=== PATIENT | male | born 1930 | race Caucasian/White ===

== ENCOUNTER → 2016-09-23 | Outpatient (CLI) | payer OTHER ==
[~2016-09-23] VITALS: Ht 177.8 cm; Wt 75.4 kg
[~2016-09-23] MED LIST: ASPIRIN EC325 M1 PO; ATENOLOL 50MG T50 M1 PO; CELEBREX 200 M200 M1 PO; FENTANYL PA12 MCG/HR TP; FISH OIL 1,0001 EAC5 PO; GLUCOSAMINE S1000 M2 PO; HALCION0.125 MG PO; HYDROCODONE-AP1 EAC6 PO; IBUPROFEN 200200 M1 PO; MULTIVITAMINS1 EAC7 PO; NABUMETONE 500500 M1 PO; SAW PALMETTO500 MG PO; SIMVASTATIN20 MG PO; VITAMIN D1000 UNI1 PO; VITCB500GO PO; ZANTAC 7575 MG PO; ZPAK PO
--- NOTE | ~2016-09-23 | HPC ---
[facility] [place] [address] PAIN MANAGEMENT CONSULTATION Name: BREN BARRIENTOS JR Room #: REG [facility]#: [id number] Admission: 09/23/16 Attend Phys: Jairo Goldsmith DO Discharge: Date of : 29 Report #: [id number] THIS REPORT FOR: //name// CC: Jairo Thomas DO DATE OF SERVICE: 09/23/2016 DATE OF SERVICE: 09/23/2016 CHIEF COMPLAINT: Low back pain, right lower extremity pain and paresthesias, intermittent left buttock and posterolateral thigh pain. HISTORY OF PRESENT ILLNESS: As you know, the patient is an extremely pleasant 86-year-old male, who returns today in followup visit, reporting pain score 6-7/10. He indicates pain is exacerbated with walking, standing, improves with sitting, lying down, heat and cold compresses, . He reports an 80% improvement in overall pain with previous epidural injection. He has returned today requesting next in the series to build on success of previous intervention. He has denied any changes in medical history and he denies any injury or trauma that may have led to progression of pain. ALLERGIES: ALUMINUM. CURRENT MEDICATIONS: Cholecalciferol, Halcion, glucosamine chondroitin, ascorbic acid, aspirin, simvastatin, atenolol, multivitamins. SOCIAL HISTORY: The patient denies tobacco, alcohol, IV or illicit drug use. He is retired, retired years ago, accompanied by his who is present in room today. IMAGING: No new imaging available. PHYSICAL EXAMINATION: VITAL SIGNS: Blood pressure 120/74, pulse 60, respiratory rate 20, unlabored. The patient is 100% on room air, height 5 feet 10 inches tall, weight 166.2 pounds, BMI calculated 23.8. GENERAL: Well developed, well nourished, well hydrated, 86-year-old male. He appears his stated age, pain is rated around 6-7/10. HEENT: Normocephalic, atraumatic. Pupils equal, round, reactive to light. Extraocular muscles are intact. Sclerae nonicteric without injection. NEUROLOGIC: Cranial nerves 2-12 grossly intact. Speech fluent. EXTREMITIES: Show no clubbing, no cyanosis, no edema. MUSCULOSKELETAL: Lower extremity strength appears equal and symmetrical 5/5. There is some gait changes antalgic favoring right lower extremity over left. [address] [address] PAIN MANAGEMENT CONSULTATION Name: BREN BARRIENTOS JR Room #: REG [facility]#: [id number] Admission: 09/23/16 Attend Phys: Jairo Goldsmith DO Discharge: Date of : 29 Report #: [id number] Muscle bulk and tone appears equal and symmetrical. There is deconditioning noted bilaterally. Seated straight leg raising negative. Supine straight leg raising positive. ASSESSMENT: 1. Symptomatic lumbar radiculopathy. 2. Lumbosacral spondylosis with radiculopathy. 3. Degeneration of lumbar spine. 4. Chronic intractable pain. PLAN: 1. The patient has returned today in followup visit requesting to undergo the next in a series of epidural injections under fluoroscopic guidance. He reports 80% improvement in overall pain with previous injection, but unfortunately his pain has begun to return. He has requested and we will perform next in the series of epidural injections. He has done very well with these injections. We are hopeful to see similar improvement today. He has consent to undergo the procedure. 2. No medication changes were made at today's visit. The patient to continue current medical therapy as previously prescribed. 3. The patient to return to our clinic on an as needed basis for the next in a series of epidural injections and discuss other treatment options. PROCEDURE NOTE DESCRIPTION OF PROCEDURE: Lumbar epidural steroid injection under fluoroscopic guidance. After obtaining written consent, the patient was taken back to fluoroscopy suite, placed in prone position with pillow under abdomen to decrease lumbar lordosis. Skin overlying lumbosacral area prepped and draped in aseptic fashion. Lumbar intervertebral spaces were identified by AP fluoroscopy. Skin and subcutaneous tissue overlying target site of injection was anesthetized with 3 mL of 1% lidocaine. A #20-gauge 3-1/2 inch Tuohy needle advanced under fluoroscopic guidance towards the epidural space using a right paramedian approach. Epidural space identified using loss of resistance to air technique. After negative aspiration for heme or cerebrospinal fluid, 1 mL of Omnipaque was injected. Lumbar epidurogram confirmed using both AP and lateral fluoroscopy. After negative aspiration for heme or cerebrospinal fluid, 5 mL of a solution containing 2 mL 40 mg per mL, 80 mg total triamcinolone, 3 mL lidocaine 1% injected slowly. Needle retracted penitentiary, needle tract flushed 3 mL 1% lidocaine. Needle removed. Sterile bandage placed over injection site. No new motor deficits present in lower extremity following the procedure. [facility] [address] [place] [address] PAIN MANAGEMENT CONSULTATION Name: BREN BARRIENTOS JR Room #: REG [facility]#: [id number] Admission: 09/23/16 Attend Phys: Jairo Goldsmith DO Discharge: Date of : 29 Report #: [id number] The patient tolerated procedure well, carefully escorted to the recovery in stable condition. No apparent complications. After meeting discharge criteria, the patient discharged home. By: [id number] Jairo Goldsmith DO /nt
[2016-09-23 08:54] VITALS: BP 128/74
== END ==
LOC: PAIN 07:01
DX: M47.27 Other spondylosis with radiculopathy, lumbosacral region (principal); G89.29 Other chronic pain; I10 Essential (primary) hypertension; Z87.891 Personal history of nicotine dependence

== ENCOUNTER → 2016-11-11 | Outpatient (CLI) | payer OTHER ==
[~2016-11-11] VITALS: Ht 177.8 cm; Wt 74.5 kg
[~2016-11-11] MED LIST changes: +I-PRIN200 MG PO; +IBUPROFEN 800800 M1 PO; +PRILOSEC 20 MG20 MG PO
--- NOTE | ~2016-11-11 | HPC ---
[facility] [address] [place] [address] PAIN MANAGEMENT CONSULTATION Name: BREN BARRIENTOS JR Room #: REG [facility]#: [id number] Admission: 11/11/16 Attend Phys: Jairo Goldsmith DO Discharge: Date of : 29 Report #: [id number] THIS REPORT FOR: //name// CC: Jairo Thomas DO DATE OF SERVICE: 11/11/2016 REFERRING PHYSICIAN: Casey Thomas DO. CHIEF COMPLAINT: Low back pain, right lower extremity pain and paresthesias. HISTORY OF PRESENT ILLNESS: As you know, the patient is an extremely pleasant 86-year-old male, who continues to experience low back pain, right lower extremity pain, but now he is experiencing some left lower extremity symptoms. He is placing current pain score at 6-7/10, states the pain is exacerbated with walking, standing, getting out of bed, and sitting for any length of time, improves with lying down, heat and cold compresses, distraction techniques, also ibuprofen therapy 800 mg twice a day. He returns today in followup visit to discuss treatment options. ALLERGIES: ALUMINUM. CURRENT MEDICATIONS: Cholecalciferol, Halcion, glucosamine chondroitin, ascorbic acid, aspirin, multivitamin, atenolol, simvastatin, ibuprofen 800 mg twice a day. SOCIAL HISTORY: The patient denies tobacco, alcohol, IV or illicit drug use. He is retired, retired years ago. He is accompanied by his , who is present in room today. IMAGING: No new imaging available. PHYSICAL EXAMINATION: VITAL SIGNS: Blood pressure 151/80, pulse is 60, respiratory rate 20, unlabored. The patient is 98% on room air, height 5 feet 10 inches tall, weight 164.2 pounds, BMI calculated at 23.6. GENERAL: Well developed, well nourished, and well hydrated. An 86-year-old male appearing stated age. Pain is rated around 6-7/10. HEENT: Normocephalic and atraumatic. Pupils are equal, round, and reactive to light. Extraocular muscles are intact. Speech is fluent. EXTREMITIES: Show no clubbing, no cyanosis, no edema. MUSCULOSKELETAL: Seated straight leg raising negative. Supine straight leg raising remains positive. Danielle's test negative. Modified Gaenslen's is positive for axial low back pain. Ankle clonus negative. Babinski is negative. [address] [address] PAIN MANAGEMENT CONSULTATION Name: BREN BARRIENTOS JR [id number] Admission: 11/11/16 Attend Phys: Jairo Goldsmith DO Discharge: Date of : 29 Report #: [id number] The patient's gait is antalgic and shuffling in presentation. ASSESSMENT: 1. Symptomatic lumbar radiculopathy. 2. Lumbosacral spondylosis with radicular symptoms. 3. Lumbar degeneration. 4. Chronic intractable pain. PLAN: 1. The patient has returned today in followup visit, where we have discussed at length treatment options for his ongoing back pain issues. The patient reports today that if he takes 800 mg of ibuprofen twice a day, he is virtually pain free. He states that if he takes this in the morning and again somewhere around 3 o'clock in the afternoon, he is able to go about all activities of daily living throughout the day. We did discuss the risks and the benefits of the ibuprofen therapy at 800 mg. We would have to watch for long-term therapy issues, including kidney dysfunction, GI issues and the possibility of cardiovascular risk. So given the benefits he is receiving, this risk to benefit ratio would favor the ibuprofen. The patient and I discussed this at length today. He can bring this up with his primary care physician, but I would venture to guess that given the ibuprofen therapy, the fact that he is receiving near 100% improvement in overall pain, able to do all activities of daily living including continuing his workouts and tasks around the home, that the medication itself would far away in its potential side effects, given the benefit that he receives. I would recommend that he continue the ibuprofen at this time. It is certainly safer than epidural injections and current medications available for chronic pain issues. 2. We have provided the patient with a prescription of ibuprofen 800 mg dose 1 tab p.o. b.i.d. with meals. I have given the patient #60 tablets, 2 refills, 3 months' worth of medication. 3. The patient and I will have him undergo laboratory testing at next visit to check BUN and creatinine, we would be monitoring this during this medical therapy. We will keep you apprised if any changes are noted or changes in medication therapy need to be addressed. 4. The patient could return at any time if he wishes to undergo next in the series of epidural injections. We would certainly be willing to have the patient return to undergo this procedure, but given the fact that he is seeing such significant improvement with ibuprofen, I would recommend he continue this therapy, until this fails or having side effects to the medication. <ELECTRONICALLY SIGNED> By: Jairo Goldsmith DO 11/12/16 0753 [id number] Jairo Goldsmith, DO /nt
[2016-11-11 10:51] VITALS: BP 151/80
== END | disposition home or self-care (01) ==
LOC: PAIN 06:27
DX: M51.36 Other intervertebral disc degeneration, lumbar region (principal); J40 Bronchitis, not specified as acute or chronic; M47.27 Other spondylosis with radiculopathy, lumbosacral region; G89.29 Other chronic pain; Z87.891 Personal history of nicotine dependence

== ENCOUNTER → 2017-12-14 | Outpatient (CLI) | payer OTHER ==
[~2017-12-14] VITALS: Ht 180.3 cm; Wt 73.9 kg
[~2017-12-14] MED LIST changes: +METOPROLOL SUCC50 MG PO; +NORVASC2.5 MG PO; +PLAVIX 75 MG TA75 M1 PO; +PROTONIX40 M1 PO; +XALATAN2.5 ML OPHTHALMIC
--- NOTE | ~2017-12-14 | HPC ---
[facility] [place] [address] PAIN MANAGEMENT CONSULTATION Name: BREN BARRIENTOS JR Room #: REG [facility]#: [id number] Admission: 12/14/17 Attend Phys: Jairo Goldsmith DO Discharge: Date of : 29 Report #: [id number] THIS REPORT FOR: //name// CC: Jaior Thomas DO DATE OF SERVICE: 12/14/2017 CHIEF COMPLAINT: Low back pain, right lower extremity pain with paresthesias. HISTORY OF PRESENT ILLNESS: As you know, the patient is an extremely pleasant 87-year-old male who returns today in followup visit with recurrent low back pain, right lower extremity pain with paresthesias. The patient places his current pain score 7/10. He states his pain is constant, deep, aching, numbness and tingling. He states pain is exacerbated with sitting, getting up and down from a chair, walking long distances. It improves with activities and epidural injections. He returns today in followup visit indicating he has had 3 transient ischemic attacks, the most recent nearly 1 month ago and he has been started on anticoagulant therapy. He states that the transient ischemic attacks left no residual deficits except for some cognition issues. The patient returns to discuss options for treatment for low back pain, right lower extremity pain due to radiculopathy. He indicates ibuprofen therapy 800 mg twice a day is working beneficially for pain control. He continues to take this medication. ALLERGIES: ALUMINUM. CURRENT MEDICATIONS: Cholecalciferol, Halcion, glucosamine chondroitin, ascorbic acid, aspirin, multivitamins, atenolol, simvastatin, ibuprofen and Plavix. SOCIAL HISTORY: The patient denies tobacco, alcohol, IV or illicit drug use. He is retired, retired years ago. He is accompanied by his who is present in room today. IMAGING: No new imaging available. PQRS: The patient has osteoarthritis of the back, bilateral hands and knees. No rheumatoid arthritis. He places pain intensity is 7/10. He is not a fall risk and has not had a fall in last 3 months. He is on blood thinners. He is not under opioid contract. He has a low assessment for opioid addiction. He places his functional assessment pain impact score 35/70 moderate. PHYSICAL EXAMINATION: VITAL SIGNS: Blood pressure 139/74, pulse 59, respiratory rate 16 and unlabored, the patient is 99% on room air. Height 5 feet 11 inches tall, weight [facility] [address] [place] [address] PAIN MANAGEMENT CONSULTATION Name: BREN BARRIENTOS [facility]: [facility] [id number] Admission: 12/14/17 Attend Phys: Jairo Goldsmith DO Discharge: Date of : 29 Report #: [id number] 163 pounds, BMI calculated 22.7. GENERAL: Well-developed, well-nourished, well-hydrated 87-year-old male appearing stated age, placing current pain score 7/10. HEENT: Normocephalic, atraumatic. Pupils equal, round, reactive to light. Extraocular muscles are intact. EXTREMITIES: Show no clubbing, no cyanosis, no edema. MUSCULOSKELETAL: Lower extremity strength is symmetrical with giveaway strength noted with hip flexion, knee extension on the right when compared to the left. Seated straight leg raising positive right, supine straight leg raising positive right. Danielle's test negative. Modified Gaenslen's is positive for some axial low back pain. Ankle clonus negative. Babinski is negative. Muscle bulk and tone appears equal and symmetrical. Gait is antalgic and shuffling. ASSESSMENT: 1. Symptomatic lumbar radiculopathy. 2. Lumbosacral spondylosis with radiculopathy. 3. Lumbar degeneration. 4. Chronic intractable pain. PLAN: 1. The patient returns today in followup visit with recurrent low back pain, right lower extremity pain with paresthesias. He reports good efficacy with previous lumbar epidural injections providing upwards of 80% improvement in overall pain lasting almost 1 year. The patient unfortunately has had a recurrence of symptoms in typical distribution. The patient and I discussed the potential for treatment options. These would include physical therapy, stretching exercise and core strengthening. We discussed medication management with a neuropathic pain medication and a low dose opioid for pain control. We discussed epidural injections under fluoroscopic guidance, spinal cord stimulator and surgical options. The patient at this point wished just specifically review his options for treatment and determine the source of his symptoms. 2. The patient and I did discuss that the symptoms he is experiencing are radicular in origin. The treatments as indicated above would be beneficial. He has noted great benefit with previous epidural injections, but unfortunately, he is now on anticoagulation for transient ischemic attacks. He would need to obtain clearance to come off his Plavix for 7 days per ABDULLAHI guidelines to undergo the epidural injection. If the patient is able to gain clearance off the medication for the 7 days, we would have him return to undergo epidural injection. Certainly medication managements could be an option in this patient's case and we discussed this at length today. 3. The patient indicates he is getting good benefit from his ibuprofen therapy. I have advised the patient at this time, the ibuprofen therapy cannot be utilized in conjunction with Pradaxa due to increasing bleeding risk. The patient states that he cannot live without the ibuprofen therapy. We discussed options of treatment. He will determine whether or not he wishes to continue [facility] [address] [place] [address] PAIN MANAGEMENT CONSULTATION Name: BREN BARRIENTOS Room #: REG [facility]#: [id number] Admission: 12/14/17 Attend Phys: Jairo Goldsmith DO Discharge: Date of : 29 Report #: [id number] this therapy, though we have suggested he discontinue immediately. Would not recommend any nonsteroidal anti-inflammatories in his case as none have been approved with Plavix concomitant therapy. 4. The patient will return to our clinic on an as needed basis for possible epidural injection. He will need to obtain authorization to discontinue his Plavix for 7 days prior to the injection. He was advised of such today. If he is able to achieve authorization, we will have the patient return at his earliest convenience to undergo the procedure. 5. We will discuss at followup visit other treatment options including surgical options if requested. We are hopeful the patient has a better understanding of his ongoing issues and treatment options available and the risks and benefits of those treatments. By: [id number] Jairo Goldsmith DO /nt
[2017-12-14 11:18] VITALS: BP 139/74
== END ==
LOC: PAIN 06:39
DX: M47.27 Other spondylosis with radiculopathy, lumbosacral region (principal); M51.16 Intervertebral disc disorders with radiculopathy, lumbar region; G89.4 Chronic pain syndrome

== ENCOUNTER → 2018-01-12 | Outpatient (CLI) | payer OTHER ==
[~2018-01-12] VITALS: Ht 180.3 cm; Wt 73.5 kg
--- NOTE | ~2018-01-12 | HPC ---
[facility] [place] [address] PAIN MANAGEMENT CONSULTATION Name: BARRIENTOSBREN KAYLYNN JR Room #: REG [facility]#: [id number] Admission: 01/12/18 Attend Phys: Jairo Goldsmith DO Discharge: Date of : 29 Report #: [id number] THIS REPORT FOR: //name// CC: Jairo Robb DATE OF SERVICE: 01/12/2018 REFERRING PHYSICIAN: Casey Thomas DO CHIEF COMPLAINT: Low back pain, right lower extremity pain and paresthesias. HISTORY OF PRESENT ILLNESS: As you know, the patient is an extremely pleasant 87-year-old male who returns today in followup visit with continued low back pain, right lower extremity pain with paresthesias. The patient has been off his Plavix for the past 7 days in preparation to undergo epidural injection under fluoroscopic guidance. The patient indicates pain is aching and burning, places current pain score 5/10, exacerbated with sitting and getting in and out of bed, improves with walking, ibuprofen therapy and activity. He has been referred to our clinic for lumbar epidural injections. He has done very well with previous injections, returning today requesting next in the series. He has discontinued his Plavix 7 days prior to today's procedure. ALLERGIES: ALUMINUM and IV CONTRAST AGENT. CURRENT MEDICATIONS: Cholecalciferol, Halcion, glucosamine chondroitin, ascorbic acid, aspirin, multivitamin, atenolol, simvastatin, ibuprofen, and Plavix. SOCIAL HISTORY: The patient denies tobacco, alcohol, IV or illicit drug use. He is retired, retired years ago. He is accompanied by his who is present in room today. IMAGING: No new imaging available. PQRS: The patient has osteoarthritis of the lower back, bilateral hands, and knees. No rheumatoid arthritis. He places current pain score at 5/10. He is not a fall risk, has not had a fall in the last 3 months. He is on blood thinners, but has discontinued in preparation for today's procedure. He is not under any opioid contract, he has low opiate addiction potential. He is placing his pain impact score at 35/70, moderate interference. PHYSICAL EXAMINATION: VITAL SIGNS: Blood pressure 126/66, pulse 66, respiratory rate 14 and unlabored, the patient is 98% on room air, height 5 feet 11 inches tall, weight [facility] [address] [place] [address] PAIN MANAGEMENT CONSULTATION Name: BREN BARRIENTOS JR Room #: REG [facility]#: [id number] Admission: 01/12/18 Attend Phys: Jairo Goldsmith DO Discharge: Date of : 29 Report #: [id number] 262 pounds, and BMI calculated 22.6. GENERAL: Well-developed, well-nourished, well-hydrated 87-year-old male, appearing stated age, placing current pain score around 5/10. HEENT: Normocephalic, atraumatic. Pupils are equal, round, and reactive to light. Speech is fluent for patient. EXTREMITIES: Show no clubbing, no cyanosis, and no edema. MUSCULOSKELETAL: Lower extremity strength is symmetrical with some giveaway strength noted with hip flexion, knee extension on the right when compared to left. Seated straight leg raising mildly positive right. Supine straight leg raising positive right. Gait is antalgic favoring right lower extremity over left and secondary to underlying condition. ASSESSMENT: 1. Symptomatic lumbar radiculopathy. 2. Lumbosacral spondylosis with radiculopathy. 3. Lumbar degeneration. 4. Chronic intractable pain. PLAN: 1. The patient has returned today in followup visit to undergo next in the series of epidural injections. He reports good efficacy of 80% with previous epidural injection. He has stopped his Plavix in preparation for today's procedure, he has been off the medication for 7 days. We have advised the patient the risks and benefits, states understood and wished to proceed. 2. The patient has requested refill of his ibuprofen therapy. He has gained clearance from his primary care physician, Dr. Thomas to continue with intermittent ibuprofen therapy in conjunction with his Plavix. We have provided the patient with an ibuprofen 800 mg dose b.i.d. maximum per day. He was given #60 tablets with refills. The patient will watch for any increased bleeding risk with the use of this medication, he will also watch for dyspepsia, worsening blood pressure, and lower extremity edema. If any side effects, discontinue immediately. 3. We will see the patient back in followup visit on an as needed basis for possible next in the series of epidural injections. PROCEDURE NOTE DESCRIPTION OF PROCEDURE: L5-S1 right paramedian epidural steroid injection under fluoroscopic guidance. After obtaining written consent, the patient was taken back to fluoroscopy suite, placed in prone position with pillow under abdomen to decrease lumbar lordosis. Skin overlying lumbosacral area then prepped and draped in aseptic fashion. L5-S1 vertebral interspace identified by AP fluoroscopy. Skin and subcutaneous tissue overlying target site of injection was anesthetized with 3 mL of 1% lidocaine. [address] [address] PAIN MANAGEMENT CONSULTATION Name: BREN BARRIENTOS JR Room #: REG [facility]#: [id number] Admission: 01/12/18 Attend Phys: Jaior Goldsmith DO Discharge: Date of : 29 Report #: [id number] A 20-gauge 3-1/2-inch Tuohy needle advanced under fluoroscopic guidance towards the epidural space using a right paramedian approach. Epidural space identified using loss of resistance to air technique. Due to a contrast allergy, no contrast agent was used in today's procedure. Imaging was obtained to confirm needle position within the epidural space both in AP and lateral imaging. After negative aspiration for heme or cerebrospinal fluid, 4 mL of a solution containing 2 mL 40 mg per mL, 80 mg total triamcinolone and 2 mL of preservative-free normal saline injected. Needle was retracted mcc, flushed with 1 mL of 1% lidocaine and removed. Sterile bandage placed over injection site. No new motor deficits present in lower extremity following procedure. The patient tolerated the procedure well, carefully escorted to the recovery room in stable condition. No apparent complications. After meeting discharge criteria, the patient discharged home. <ELECTRONICALLY SIGNED> By: Jairo Goldsmith DO 01/14/18 0815 [id number] Jairo Goldsmith DO /nt
[2018-01-12 07:46] VITALS: BP 126/66
== END | disposition home or self-care (01) ==
LOC: PAIN 06:31
DX: M54.16 Radiculopathy, lumbar region (principal)

== ENCOUNTER → 2018-03-22 | Outpatient (CLI) | payer OTHER ==
[~2018-03-22] VITALS: Ht 180.3 cm; Wt 72.6 kg
--- NOTE | ~2018-03-22 | HPC ---
[facility] [address] [place] [address] PAIN MANAGEMENT CONSULTATION Name: BREN BARRIENTOS JR Room #: REG [facility]#: [id number] Admission: 03/22/18 Attend Phys: Jairo Goldsmith DO Discharge: Date of : 28 Report #: [id number] THIS REPORT FOR: //name// CC: Jairo Thomas ADDENDUM. Apparently one of my dictation got cut off after the chief complaint. ALLERGIES: ALUMINUM. CURRENT MEDICATIONS: Cholecalciferol, Halcion, glucosamine chondroitin, ascorbic acid, aspirin, multivitamin, atenolol, simvastatin, ibuprofen, Plavix. SOCIAL HISTORY: The patient denies tobacco, alcohol, IV or illicit drug use. He is retired, retired years ago. He is unaccompanied today. IMAGING: No new imaging available. 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 No rheumatoid arthritis. He is placing his current pain intensity of 1-2/10. He is not a fall risk, has not had a fall in the last 3 months. He is on blood thinners in the form of Plavix . He is treated for hypertension. He is not on current opioids. He has a low opioid addiction potential. Functional assessment, pain impact score 35/70, moderate interference. PHYSICAL EXAMINATION: VITAL SIGNS: Blood pressure 135/63, pulse 69, respiratory rate 16 and unlabored, the patient 99% on room air. Height 5 feet 11 inches tall, weight 160 pounds, BMI calculated 22.3. GENERAL: Well-developed, well-nourished, well-hydrated 87-year-old male, who returns today in followup visit with pain score 1-2/10. The patient is deemed a good historian. LUNGS: Clear, no wheeze, rhonchi or rales. CARDIOVASCULAR: Regular. No appreciable gallop or rub. ABDOMEN: Soft, nontender, nondistended. EXTREMITIES: Show no clubbing, no cyanosis, no edema. MUSCULOSKELETAL: Lower extremity strength appears symmetrical 5/5. He is intact to light touch from L1 through S2 dermatomes. There is mild giveaway strength noted with hip flexion, knee extension on the right compared to left. Seated straight leg raising is negative. Supine straight leg raising positive on the left. Danielle test negative. ASSESSMENT: 1. [place] [address] PAIN MANAGEMENT CONSULTATION Name: BREN BARRIENTOS JR Room #: REG CLI [facility]#: [id number] Admission: 03/22/18 Attend Phys: Jairo Goldsmith DO Discharge: Date of : 29 Report #: [id number] 2. Lumbosacral spondylosis with radiculopathy. 3. Lumbar degeneration. 4. Chronic intractable pain. PLAN: 1. The patient returns today in followup visit having made an appointment about 2 weeks ago when his pain intensified to a level of 8/10. The patient states that over the past couple of days, his pain has begun to improve spontaneously. He has made no changes in medical history. He has changed none of his activities. He just indicates his pain spontaneously began to resolve just as it spontaneously begun. There is not unusual for spinal stenosis patients and is fairly typical presentation. The patient and I discussed at length today the use of the next in the series of epidural injections. At this point, I would recommend delaying its use as we currently have a tolerable pain levels, and he has improved spontaneously. I would recommend that we delay the epidural injection until which time his pain returns and does not improve spontaneously. The patient was amenable. 2. The patient was advised if his pain does return, to discontinue his anticoagulant immediately Plavix require 7 days off before he can undergo the procedure. This is based on the ABDULLAHI guidelines. The patient would make an appointment back with us after discontinuing the Plavix to undergo the next in the series of epidural injections. During that time that he has discontinued his Plavix, he can take his ibuprofen that was provided for pain control. He can take up to three 800 mg ibuprofen over that week timeframe to help with pain that is present prior to our injection. 3. We will see the patient back in followup visit on an as needed basis. We hope that his pain remains tolerable, but will be available to see him back for the next in the series of epidural injections. <ELECTRONICALLY SIGNED> By: Jairo Goldsmith DO 03/23/18 1542 [id number] Jairo Goldsmith DO /nt
--- NOTE | ~2018-03-22 | HPC ---
[address] [address] PAIN MANAGEMENT CONSULTATION Name: BARRIENTOSBREN ZULUAGALEY Room #: REG [facility]#: [id number] Admission: 03/22/18 Attend Phys: Jairo Goldsmith DO Discharge: Date of : 29 Report #: [id number] THIS REPORT FOR: //name// CC: Jairo Robb DATE OF SERVICE: 03/22/2018 CHIEF COMPLAINT: Low back pain, right lower extremity pain and paresthesias. HISTORY OF PRESENT ILLNESS: As you know, the patient is an extremely pleasant 87-year-old male who returns today in followup visit stating 2 weeks ago, his back pain intensified with radiation all the way down the right leg. At that time, he was reporting pain at a level of 8-9/10. Over the past couple of days, his pain has begun to improve. He is now placing pain score 1-2/10. He returns today in followup visit to discuss treatment options. He remains on his Plavix, which precludes us from providing any type of epidural injection or interventional treatment. Dictation ends here. <ELECTRONICALLY SIGNED> By: Jairo Goldsmith DO 03/23/18 1542 [id number] Jairo Goldsmith DO /nt
[2018-03-22 12:30] VITALS: BP 135/63
== END ==
LOC: RAD 06:56 → PAIN 06:56
DX: M47.26 Other spondylosis with radiculopathy, lumbar region (principal); M47.27 Other spondylosis with radiculopathy, lumbosacral region; M51.16 Intervertebral disc disorders with radiculopathy, lumbar region; G89.4 Chronic pain syndrome; M41.86 Other forms of scoliosis, lumbar region; Z79.899 Other long term (current) drug therapy

== ENCOUNTER → 2018-07-26 | Outpatient (CLI) | payer OTHER ==
[~2018-07-26] VITALS: Ht 180.3 cm; Wt 79.7 kg
[~2018-07-26] MED LIST changes: +HYDROCODON-ACE1 EAC7 PO
--- NOTE | ~2018-07-26 | HPC ---
[facility] [address] [place] [address] PAIN MANAGEMENT CONSULTATION Name: BARRIENTOSBREN KAYLYNN JR Room #: REG [facility]#: [id number] Admission: 07/26/18 Attend Phys: Jairo Goldsmith DO Discharge: Date of : 29 Report #: [id number] THIS REPORT FOR: //name// CC: Jairo Thomas DO DATE OF SERVICE: 07/26/2018 REFERRING PHYSICIAN: Casey Thomas D.O. CHIEF COMPLAINT: Low back pain, right lower extremity pain and paresthesias. HISTORY OF PRESENT ILLNESS: As you know, the patient is extremely pleasant 88-year-old male who returns today in followup visit with recurrent low back pain, right lower extremity pain and paresthesias. The patient is placing his current pain score at around 5/10. He states he is having difficulty with walking and standing due to increased pain. He has discontinued his Plavix in preparation for today's procedure. He has been off the Plavix for over 7 days. He denies new injury or trauma that may have led to symptom occurrence. He returns today to undergo next in the series of lumbar epidural injections to address lumbar radicular symptoms. ALLERGIES: ALUMINUM. CURRENT MEDICATIONS: Cholecalciferol, Halcion, glucosamine chondroitin, ascorbic acid, aspirin, multivitamin, atenolol, simvastatin, ibuprofen and Plavix. SOCIAL HISTORY: The patient denies tobacco, alcohol or IV or illicit drug use. He is retired, retired years ago, accompanied by his present in room today. IMAGING DATA: No new imaging available. PQRS: The patient has osteoarthritic changes of the lumbar spine, bilateral hands and bilateral knees. No rheumatoid arthritis. He is placing current pain score at 6/10. He is a fall risk and he has had a fall in the last couple of weeks. He does not use any cane or ambulatory device, though we have cautioned him to do so. He is on blood thinners in the form of Plavix. He is treated for hypertension. He is not on any chronic opioids. He has a low opioid addiction potential. Based on our assessment tool, pain impact is 35/70, moderate interference of daily activities secondary to pain. PHYSICAL EXAMINATION: VITAL SIGNS: Blood pressure 117/71, pulse 80 and respiratory rate 16 and unlabored. The patient is 100% on room air and current temperature is 98.0 [place] [address] PAIN MANAGEMENT CONSULTATION Name: BREN BARRIENTOS JR [id number] Admission: 07/26/18 Attend Phys: Jairo Goldsmith DO Discharge: Date of : 29 Report #: [id number] Fahrenheit. Height 5 feet 11 inches tall, weight 175.6 pounds and BMI calculated 24.5. GENERAL: Well-developed, well-nourished and well hydrated 88-year-old male appearing stated age, placing current pain score 5/10. HEENT: Normocephalic and atraumatic. Pupils equal, round and reactive to light. Extraocular muscles are intact. EXTREMITIES: Show no clubbing, no cyanosis and no edema. MUSCULOSKELETAL: Lower extremity strength is symmetrical 5/5, intact to light touch from L1 through S2 dermatomes. Seated straight leg raising is positive on the right. Supine straight leg raising positive on the right. Danielle's test is negative. Modified Gaenslen's positive for axial low back pain. Ankle clonus negative. Babinski is negative. There is swelling noted over the right lower extremity distal to the knee. This is nonpitting. ASSESSMENT: 1. Symptomatic lumbar radiculopathy. 2. Lumbosacral spondylosis with radiculopathy. 3. Lumbar degeneration. 4. Chronic intractable pain. PLAN: 1. The patient has returned today in followup visit with recurrence of pain. He is now placing pain score 6/10, states pain begins in the low back, radiates down the right leg all the way to the foot. This is causing intense stabbing sensations, numbness and tingling that making difficult for the patient to go about activities of daily living. He returns today in followup visit having discontinued his Plavix for the past 7 days in preparation for an epidural injection. He has been advised risks and benefits of the procedure, states understood and wished to proceed. 2. No medication changes made at today's visit. He will restart his Plavix starting this afternoon and continue normal Plavix dosing as directed by the prescribing physician. 3. We will see the patient back in followup visit on an as needed basis for possible next in the series of lumbar epidural injections. PROCEDURE NOTE DESCRIPTION OF PROCEDURE: L5-S1 right paramedian epidural steroid injection under fluoroscopic guidance. After obtaining written consent, the patient was taken back to fluoroscopy suite, placed in prone position with pillow under abdomen to decrease lumbar lordosis. Skin overlying the lumbosacral area then prepped and draped in aseptic fashion. The L5-S1 vertebral interspace identified by AP fluoroscopy. Skin and subcutaneous tissue overlying target site of injection anesthetized with 3 mL of 1% lidocaine. [address] [address] PAIN MANAGEMENT CONSULTATION Name: BREN BARRIENTOS JR Room #: REG [facility]#: [id number] Admission: 07/26/18 Attend Phys: Jairo Goldsmith DO Discharge: Date of : 29 Report #: [id number] A 20-gauge 3-1/2 inch Tuohy needle advanced under fluoroscopic guidance towards the epidural space using a right paramedian approach. Epidural space identified using loss of resistance to air technique. After negative aspiration for heme or cerebrospinal fluid, 1 mL of Omnipaque injected. Lumbar epidurogram confirmed using both AP and lateral fluoroscopy. After negative aspiration for heme or cerebrospinal fluid, 5 mL of a solution containing 2 mL 40 mg per mL, 80 mg total triamcinolone, 3 mL of lidocaine 1% injected slowly. Needle were then retracted approximately half way, flushed with 1 mL of 1% lidocaine and removed. Sterile bandage placed over injection site. No new motor deficits present in the lower extremities following procedure. The patient tolerated procedure well, carefully escorted to recovery room in stable condition. No apparent complications. After meeting discharge criteria, the patient discharged home. By: [id number] [id number] Jairo Goldsmith DO /nt
[2018-07-26 08:22] VITALS: BP 117/71
--- NOTE | 2018-07-26 08:37 | NUR ---
Pain Clinic Assessment: 1. History of Osteoarthritis: Not Applicable History of Rheumatoid Arthritis: Not Applicable 2. Height: 5 ft. 11 in. 180.3 cm. Weight: 175.6 lb. oz. 79.652 kg. Patient's BMI: 24.5 3. Vital Signs: BP: 117/71 Pulse: 80 Resp: 16 Temp: 02 Sat: 100 ECG Mon: 4. Pain Intensity: 5 5. Fall Risk: Dizziness: Y Needs help standing or walking: Y Fallen in the last 3 months: Y Fall risk comments: 6. Patient on Blood Thinner: PLAVIX 7. History of Hypertension: Y 8. Opioid Therapy greater than 6 weeks: N Opiate Contract Signed: 9. Risk Assessment Tool Provided: LOW-0 10. Functional Assessment Tool: 11. Recreational Drug Use: Never Drug Type: Tobacco Use: Former Smoker Tobacco Type: Amount or Packs/day: How Many Years: Alcohol Use: No Frequency: Quant:
== END | disposition home or self-care (01) ==
LOC: PAIN 06:36
DX: M54.16 Radiculopathy, lumbar region (principal); Z87.891 Personal history of nicotine dependence; Z88.8 Allergy status to other drugs, medicaments and biological substances; Z79.899 Other long term (current) drug therapy; Z79.82 Long term (current) use of aspirin

== ENCOUNTER → 2018-10-19 | Outpatient (CLI) | payer OTHER ==
[~2018-10-19] VITALS: Ht 180.3 cm; Wt 75.4 kg
[2018-10-19 09:49] VITALS: BP 120/73
--- NOTE | 2018-10-19 10:01 | NUR ---
Pain Clinic Assessment: 1. History of Osteoarthritis: Not Applicable History of Rheumatoid Arthritis: Not Applicable 2. Height: 5 ft. 11 in. 180.3 cm. Weight: 166.2 lb. oz. 75.388 kg. Patient's BMI: 23.2 3. Vital Signs: BP: 120/73 Pulse: 67 Resp: 14 Temp: 02 Sat: 100 ECG Mon: 4. Pain Intensity: 3-4 5. Fall Risk: Dizziness: N Needs help standing or walking: N Fallen in the last 3 months: Y Fall risk comments: 6. Patient on Blood Thinner: PLAVIX 7. History of Hypertension: Y 8. Opioid Therapy greater than 6 weeks: N Opiate Contract Signed: 9. Risk Assessment Tool Provided: LOW-0 10. Functional Assessment Tool: 35 11. Recreational Drug Use: Never Drug Type: Tobacco Use: Former Smoker Tobacco Type: Amount or Packs/day: How Many Years: Alcohol Use: No Frequency: Quant:
--- NOTE | 2018-10-25 07:41 | HPC ---
[facility] [address] [place] [address] PAIN MANAGEMENT CONSULTATION Name: BARRIENTOSBREN KAYLYNN JR Room #: REG [facility]#: [id number] Admission: 10/19/18 ������������������ Attend Phys: Jairo Goldsmith DO Discharge: ������������������ Date of : 29 Report #: [id number] THIS REPORT FOR: //name// CC: Jairo Thomas DO DATE OF SERVICE: 10/19/2018 REFERRING PHYSICIAN: Casey Thomas D.O. CHIEF COMPLAINT: Low back pain and right lower extremity pain with paresthesias. HISTORY OF PRESENT ILLNESS: As you know, the patient is a very pleasant 88-year-old male who returns today in followup visit with recurrent low back pain and right lower extremity pain with paresthesias. The patient is placing pain score at around 3-4/10. He indicates pain began to be noted more consistently over the past couple of weeks. He has discontinued his anticoagulant in the form of Plavix 7 days ago in preparation for today's procedure. The patient indicates that even with this increasing pain, nothing could disturb his equanimity. The patient states that even when the pain is intense, he continues to try to go about activities of daily living. His symptoms have progressed to a point now where he is wishing to undergo next in the series of epidural injections. He denies new injury or trauma. ALLERGIES: ALUMINUM. CURRENT MEDICATIONS: Cholecalciferol, Halcion, glucosamine chondroitin, ascorbic acid, aspirin, multivitamin, atenolol, simvastatin, ibuprofen and Plavix. SOCIAL HISTORY: The patient denies tobacco, alcohol, IV or illicit drug use. He is retired, retired years ago, accompanied by his present in room today. IMAGING DATA: No new imaging available. PQRS: The patient has no known arthritic changes of the lumbar spine, bilateral hands and bilateral knees. No rheumatoid arthritis. He places pain intensity 3-4/10. He is a fall risk and has had a fall in the last 3 months. He states he tripped and fell when not watching his step. He does not use any type of ambulatory device. He is on blood thinners. He is treated for hypertension. He is not on any opioids. He has a low opioid addiction potential. He is placing pain impact score at 35/70, moderate interference of daily activities secondary to pain. [address] [address] PAIN MANAGEMENT CONSULTATION Name: BREN BARRIENTOS JR Room #: REG [facility] [place]#: [id number] Admission: 10/19/18 ������������������ Attend Phys: Jairo Goldsmith DO Discharge: ������������������ Date of : 29 Report #: [id number] PHYSICAL EXAMINATION: VITAL SIGNS: Blood pressure 120/73, pulse 67 and respiratory rate 14 and unlabored. The patient is 100% on room air. Height 5 feet 11 inches tall, weight 166.2 pounds and BMI calculated 23.2. GENERAL: Well-developed, well-nourished and well-hydrated 88-year-old male appearing stated age, placing current pain score at 3-4/10. HEENT: Normocephalic and atraumatic. Pupils equal, round and reactive to light. Speech is fluent. The patient is a good historian. EXTREMITIES: Show no clubbing, no cyanosis and no edema. MUSCULOSKELETAL: Lower extremity strength is equal and symmetrical 5/5. Seated straight leg raising positive on the right. Supine straight leg raising positive on the right. Danielle's test negative. Gait appears somewhat shuffling. There is no ambulatory device. ASSESSMENT: 1. Symptomatic lumbar radiculopathy. 2. Lumbosacral spondylosis with radiculopathy. 3. Lumbar degeneration. 4. Chronic intractable pain. PLAN: 1. The patient returns today in followup visit requesting to undergo next in the series of lumbar epidural injections under fluoroscopic guidance for recurrent lumbar radicular symptoms. The patient reports previous epidural injection gave greater than 50% improvement in overall pain. He has had a slow and progressive return of symptoms. He returns today requesting next in the series in hopes of improving pain and he has been advised risks and benefits of procedure, states understood and wished to proceed. 2. No medication changes made at today's visit. The patient will continue current medical therapy as previously prescribed. 3. We will see the patient back in followup visit on an as needed basis for possible next in the series of lumbar epidural injections. PROCEDURE NOTE DESCRIPTION OF PROCEDURE: L5-S1 interlaminar epidural steroid injection under fluoroscopic guidance. After obtaining written consent, the patient was taken back to fluoroscopy suite, placed in prone position with pillow under abdomen to decrease lumbar lordosis. Skin overlying lumbosacral area then prepped and draped in aseptic fashion. Lumbar intervertebral spaces were identified by AP fluoroscopy. Skin and subcutaneous tissue overlying target site of injection was anesthetized with 3 mL of 1% lidocaine. A 20-gauge 3-1/2 inch Tuohy needle advanced under fluoroscopic guidance towards [address] [address] PAIN MANAGEMENT CONSULTATION Name: BREN BARRIENTOS JR Room #: REG [facility]#: [id number] Admission: 10/19/18 ������������������ Attend Phys: Jairo Goldsmith DO Discharge: ������������������ Date of : 29 Report #: [id number] the epidural space using a paramedian approach. Due to a contrast allergy, no contrast agent was used in today's procedure. After negative aspiration for heme or cerebrospinal fluid, 5 mL of a solution containing 2 mL 40 mg per mL, 80 mg total triamcinolone and 3 mL of lidocaine 1% injected slowly. Needle retracted approximately half way, flushed with 1 mL of 1% lidocaine and then removed. Sterile bandage placed over injection site. No new motor deficits present in the lower extremities following procedure. The patient tolerated procedure well, carefully escorted to recovery room in stable condition. No apparent complications. After meeting discharge criteria, the patient discharged home. ��������������������������������������������� <ELECTRONICALLY SIGNED> ���������������������������������������� By: Jairo Goldsmith DO ��������������������������������������������� 10/25/18 0741 [id number] Jairo Goldsmith DO /nt
== END | disposition home or self-care (01) ==
LOC: PAIN 06:48
DX: M51.16 Intervertebral disc disorders with radiculopathy, lumbar region (principal); M47.27 Other spondylosis with radiculopathy, lumbosacral region; G89.29 Other chronic pain; I10 Essential (primary) hypertension; Z88.8 Allergy status to other drugs, medicaments and biological substances; Z79.899 Other long term (current) drug therapy; Z79.01 Long term (current) use of anticoagulants; Z87.891 Personal history of nicotine dependence; Z91.041 Radiographic dye allergy status

== ENCOUNTER → 2019-03-14 | Outpatient (CLI) | payer OTHER ==
[~2019-03-14] VITALS: Ht 180.3 cm; Wt 75.6 kg
[2019-03-14 08:57] VITALS: BP 120/65
--- NOTE | 2019-03-14 09:10 | NUR ---
Pain Clinic Assessment: 1. History of Osteoarthritis: Not Applicable History of Rheumatoid Arthritis: Not Applicable 2. Height: 5 ft. 11 in. 180.3 cm. Weight: 166.6 lb. oz. 75.569 kg. Patient's BMI: 23.2 3. Vital Signs: BP: 120/65 Pulse: 70 Resp: 16 Temp: 02 Sat: 98 ECG Mon: 4. Pain Intensity: 6 5. Fall Risk: Dizziness: N Needs help standing or walking: N Fallen in the last 3 months: N Fall risk comments: 6. Patient on Blood Thinner: PLAVIX 7. History of Hypertension: Y 8. Opioid Therapy greater than 6 weeks: N Opiate Contract Signed: 9. Risk Assessment Tool Provided: LOW-0 10. Functional Assessment Tool: 11. Recreational Drug Use: Never Drug Type: Tobacco Use: Former Smoker Tobacco Type: Amount or Packs/day: How Many Years: Alcohol Use: No Frequency: Quant:
--- NOTE | 2019-03-21 07:47 | HPC ---
[facility] [address] [place] [address] PAIN MANAGEMENT CONSULTATION Name: BREN BARRIENTOS JR Room #: REG [facility]#: [id number] Admission: 03/14/19 Attend Phys: Jairo Goldsmith DO Discharge: Date of : 28 Report #: [id number] THIS REPORT FOR: //name// CC: Jairo Robb DATE OF SERVICE: 03/14/2019 CHIEF COMPLAINT: Low back pain, right lower extremity pain with paresthesias. HISTORY OF PRESENT ILLNESS: As you know, the patient is a very pleasant 88-year-old male who returns today in followup visit with recurrent low back pain and right lower extremity pain with paresthesias. As you are aware, the patient had diagnosis of severe central canal stenosis from imaging of 07/06/2018 and we have been treating his central canal stenosis with conservative treatment and epidural injections. He returns today in followup visit to undergo next in the series of epidural injections. He believes he is losing efficacy with the injections, but is hopeful to see recurrence of analgesic benefit with this injection. We did discuss at last visit if the injections do not provide long-term benefit. We have to look for another source of treatment. He returns to discuss repeating the epidural injection today with other options for therapy. He denies injury or trauma that may have led to symptom continuation. ALLERGIES: ALUMINUM. CURRENT MEDICATIONS: Cholecalciferol, Halcion, glucosamine chondroitin, ascorbic acid, aspirin, multivitamin, atenolol, simvastatin, ibuprofen, Plavix, which has been held the last 7 days. SOCIAL HISTORY: The patient denies tobacco, alcohol, IV or illicit drug use. He is retired, retired years ago, accompanied by his present in room today. IMAGING: No new imaging available. PQRS: The patient has arthritic changes of the lumbar spine, bilateral hands and bilateral knees, no rheumatoid arthritis. He is placing pain intensity 6/10. He is not a fall risk, has not had a fall in last 3 months. He is on blood thinners in the form of Plavix, but has discontinued the medication 7 days prior to today's procedure. He is treated for hypertension. He is not on chronic opioid. He has a low opioid addiction potential. He is placing pain impact score at 35/70, moderate interference of daily activities secondary to pain. PHYSICAL EXAMINATION: [facility] [address] [place] [address] PAIN MANAGEMENT CONSULTATION Name: BREN BARRIENTOS JR [id number] Admission: 03/14/19 Attend Phys: Jairo Goldsmith DO Discharge: Date of : 28 Report #: [id number] VITAL SIGNS: Blood pressure 120/65, pulse 70, respiratory rate 16 and unlabored. The patient is 98% on room air. Height 5 feet 11 inches tall, weight 166.6 pounds, BMI calculated 23.2. GENERAL: Well-developed, well-nourished, well-hydrated 88-year-old male, appearing stated age. He is placing pain today at approximately 6/10. HEENT: Normocephalic, atraumatic. Pupils equal, round, reactive to light. EXTREMITIES: Show no clubbing, no cyanosis, no edema. MUSCULOSKELETAL: Lower extremity strength is symmetrical again today 5/5. Muscle bulk and tone comparatively equal when looking at left and right lower extremity. Seated straight leg raising is positive on the right. Supine straight leg raising positive right. Gait is antalgic, favoring the right lower extremity over left. There is a shuffling pattern of gait as well. ASSESSMENT: 1. Symptomatic lumbar radiculopathy. 2. Lumbosacral spondylosis with radiculopathy. 3. Severe central canal stenosis of lumbar spine. 4. Displacement of lumbar intervertebral disk with radiculopathy. 5. Lumbar degeneration. 6. Chronic intractable pain. PLAN: 1. The patient returns today in followup visit, requesting to undergo next in the series of lumbar epidural injections under fluoroscopic guidance. He has discontinued his medication in the form of Plavix 7 days prior to today's procedure to undergo the epidural injection today. He has been advised the risks and benefits of procedure, states understood and wished to proceed. 2. The patient and I discussed other treatment options including that could be utilized in conjunction with a lumbar epidural injection. We discussed medication management, adding neuropathic pain medications and a consistent low dose opioid for pain control. We discussed spinal cord stimulator therapy that would provide the patient with benefit for an extended period of time. We also discussed surgical decompression at the L4-L5 level to alleviate the central canal stenosis. The patient will consider these options. I did give the patient information about spinal cord stimulator today, both in written and digital form. He will review this at his own convenience and we will discuss this at followup visit. 3. We made no changes in the patient's medication. He will continue current medical therapy as prior prescribed. 4. We will see the patient back in followup visit for next in the series of epidural injections and discuss other treatment options. 5. The patient will restart his Plavix today. Continue the Plavix as directed until our next visit. PROCEDURE NOTE [address] [address] PAIN MANAGEMENT CONSULTATION Name: BREN BARRIENTOS JR [facility] [id number] Admission: 03/14/19 Attend Phys: Jairo Goldsmith DO Discharge: Date of : 29 Report #: [id number] PROCEDURE: L5-S1 intralaminar epidural steroid injection under fluoroscopic guidance. After obtaining written consent, the patient was taken back to fluoroscopy suite, placed in prone position with pillow under abdomen to decrease lumbar lordosis. Skin overlying lumbosacral area prepped and draped in aseptic fashion. Lumbar intervertebral spaces were identified by AP fluoroscopy. Skin and subcutaneous tissue overlying target site of injection anesthetized with 3 mL of 1% lidocaine. A 20-gauge 3-1/2 inch Tuohy needle advanced under fluoroscopic guidance towards the epidural space using a parasagittal approach. Epidural space identified using loss of resistance to air technique. After negative aspiration for heme or cerebrospinal fluid, 1 mL of Omnipaque injected. Lumbar epidurogram was confirmed using both AP and lateral fluoroscopy. After negative aspiration for heme or cerebrospinal fluid, 5 mL of a solution containing 2 mL 40 mg per mL, 80 mg total triamcinolone along with 3 mL lidocaine 1% was injected slowly. Needle then retracted approximately half way, flushed with 1 mL of 1% lidocaine and then removed. Sterile bandage placed over injection site. No new motor deficits present in the lower extremity following procedure. The patient tolerated procedure well, carefully escorted to recovery room in stable condition. No apparent complications. After meeting discharge criteria, the patient was then discharged home. <ELECTRONICALLY SIGNED> By: Jairo Goldsmith DO 03/21/19 [id number] Jairo Goldsmith DO /nt
== END | disposition home or self-care (01) ==
LOC: PAIN 06:49
DX: M51.16 Intervertebral disc disorders with radiculopathy, lumbar region (principal); M47.26 Other spondylosis with radiculopathy, lumbar region; M48.061 Spinal stenosis, lumbar region without neurogenic claudication; G89.29 Other chronic pain; Z88.8 Allergy status to other drugs, medicaments and biological substances; Z79.899 Other long term (current) drug therapy; Z79.82 Long term (current) use of aspirin; Z87.891 Personal history of nicotine dependence